=== PATIENT | female | born 1970 | race Caucasian/White ===

== ENCOUNTER 2016-09-11 02:56 | Emergency (ER) | payer BC ==
[2016-09-11 03:19] VITALS: BP 127/82
--- NOTE | 2016-09-11 04:06 | EDM.PDOC ---
ED HPI Trauma - General Chief Complaint: Upper Extremity Injury/Pain Stated Complaint: injured L ring finger Time Seen by Provider: 09/11/16 03:20 Source: Reports: Patient History Limitations: Reports: No limitations - History of Present Illness Occurred When: this morning Occurred Where: home Method of Injury: direct blow Severity: mild Pain/Injury Location: Reports: upper extremity, left Consciousness: Reports: no loss of consciousness Associated Symptoms: Reports: no other symptoms Allergies/ADRs: Allergies No Known Allergies Allergy (Verified 09/11/16 03:17) Home Medications: Ambulatory Orders Bp Medication * 07/13/13 [Confirmed 07/13/13] Sertraline [Zoloft] 100 mg PO DAILY 07/13/13 [Confirmed 07/13/13] Metoprolol Tartrate [Lopressor] 100 mg PO DAILY 09/11/16 [Confirmed 09/11/16] Mirtazapine [Mirtazapine] 15 mg PO DAILY 09/11/16 [Confirmed 09/11/16] NIFEdipine [Nifedipine ER] 60 mg PO DAILY 09/11/16 [Confirmed 09/11/16] Social & Family History - Alcohol Use Days Per Week of Alcohol Use: 1 - Living Situation & Occupation Living situation: Reports: Review of Systems - Review of Systems Review Of Systems: ROS reveals no pertinent complaints other than HPI. Constitutional: Reports: no symptoms Eyes: Reports: no symptoms Ears: Reports: no symptoms Nose: Reports: no symptoms Mouth/Throat: Reports: no symptoms Respiratory: Reports: No Symptoms Cardiovascular: Reports: no symptoms GI/Abdominal: Reports: No symptoms Genitourinary: Reports: no symptoms Musculoskeletal: Reports: hand pain Skin: Reports: no symptoms Neurological: Reports: No Symptoms Psychiatric: Reports: no symptoms Trauma Exam - Physical Exam Exam: See Below Exam Limited By: No limitations General Appearance: Reports: alert, WD/WN, no apparent distress Head: Reports: atraumatic, normocephalic Throat/Mouth: Reports: Normal inspection, Normal oropharynx, No airway compromise Respiratory Exam: Reports: no respiratory distress Back: Reports: full range of motion, normal inspection, non-tender Extremities: Reports: other (left hand 4th digit edema and ecchymosis) Skin: Reports: Normal color ED TRAUMA EXTREMITY PROCEDURES - Additional/Other Procedure(s) Other (Free Text) Procedure(s): 2 rings removed from left 4th digit with ring cutter Course - Vital Signs Last Recorded V/S: Last Vital Signs Temp 97.1 F 09/11/16 03:17 Pulse 84 09/11/16 03:17 Resp 20 09/11/16 03:17 BP 127/82 09/11/16 03:17 Pulse Ox 97 09/11/16 03:17 - Radiology Interpretation Free Text/Narrative:: HAND XRAY NEGATIVE FOR ACUTE FRACTURE Departure - Departure Time of Disposition: 04:10 Disposition: Home, Self-Care 01 Condition: good Clinical Impression: Contusion of left hand including fingers Qualifiers: Encounter type: initial encounter Qualified Code(s): S60.222A - Contusion of left hand, initial encounter; S60.00XA - Contusion of unspecified finger without damage to nail, initial encounter Instructions: Crush Injury, Fingers or Toes, [id number] Forms: ED Department Discharge Additional Instructions: FOLLOW UP WITH YOUR PCP - Assessment/Plan Assessment:: left hand contusion with ring on 4th digit removed via ring cutter Plan: F/U WITH PCP
== END 2016-09-11 04:20 | disposition home or self-care (01) ==
LOC: KA.ED 02:56
DX: S60.222A Contusion of left hand, initial encounter (principal); S60.042A Contusion of left ring finger without damage to nail, initial encounter; Z79.899 Other long term (current) drug therapy; W01.10XA Fall on same level from slipping, tripping and stumbling with subsequent striking against unspecified object, initial encounter
CPT/HCPCS: 73120-LT; 99283